=== PATIENT | female | born 1935 | race Caucasian/White ===

== ENCOUNTER 2018-03-08 08:58 | Observation (INO) | payer OTHER, MEDICARE ==
[2018-03-08 09:24] VITALS: TEMP 98.3; BMI 26.6
--- NOTE | 2018-03-08 09:56 | PDOC ---
Attending Attestation - Resident Resident Name: Elizabeth Harry - HPI HPI: 03/08/18 12:46 Pt prsents to the ED complaining of profuse watery diarrhea after taking multiple laxatives yesterday afternoon. Patient has been having a bowel movement approximately every hour. Denies nausea, vomiting, fever or abdominal pain. Has taken immodium at home without relief. - Physicial Exam PE: 03/08/18 12:47 Agree with resident exam. Patient is alert and oriented and in no acute distress. Lungs are clear heart has regular rate and rhythm. Abdomen is non tender, non distended, with no guarding or rebound. 03/08/18 12:52 - Medical Decision Making 03/08/18 12:54 Pt presents to the ED complaining of multiple episodes of profuse watery diarrhea. Denies other complaints. Hyonatremic on labs. Will give IV hydration , admit for observation for hyponatremia.
--- NOTE | 2018-03-08 09:59 | PDOC ---
History of Present Illness - General Chief Complaint: Diarrhea Stated Complaint: DIARRHEA AND ACID REFLUX Time Seen by Provider: 03/08/18 09:51 - History of Present Illness Initial Comments: 03/08/18 11:06 Patient is an 82 year old female with a PMH of MVP, chronic constipation presents to our ED with a 2 day h/o diarrhea. Patient states she took her usual daily dose of Miralax yesterday morning and when she didn't have a bowel movement she took a suppository and administered an enema. Patient has been have multiple (20+) watery non-bloody movements. Denies any associated abdominal cramping, nausea/vomiting. States she is limitedly tolerating PO intake. At baseline patient has constipation and states she usually has a bowel movement after using Miralax daily. Patient denies chest pain, shortness of breath, abdominal pain, recent travel or sick contacts. Allergy: Sulfa Surgical: none reported Social: denies toxic habits PMD: Dr. Vignesh Nielsen Past History - Past Medical History Allergies/Adverse Reactions: Allergies Allergy/AdvReac Type Severity Reaction Status Date / Time Sulfa (Sulfonamide Allergy Intermediate Rash Verified 03/08/18 10:06 Antibiotics) Home Medications: Ambulatory Orders Ascorbate Calcium [Vitamin C] 500 mg PO DAILY 03/08/18 Calcium Carbonate/Vitamin D3 [Calcium 500 + Vit D Caplet] 1 each PO DAILY Lactobacillus Acidophilus [Acidophilus] 1 each PO DAILY 03/08/18 Multivit-Min/FA/Lycopen/Lutein [Centrum Silver Tablet] 1 each PO DAILY 03/08/18 [place]-3S/Dha/Epa/Fish Oil [Fish Oil 1,200 mg Softgel] 1 each PO DAILY 03/08/18 Cardiac Disorders: Yes (mvp) COPD: No Other medical history: neuralgia - Suicide/Smoking/Psychosocial Hx Smoking History: Former smoker Have you smoked in the past 12 months: No If you are a former smoker, when did you quit?: 60 yrs ago Information on smoking cessation initiated: No Hx Alcohol Use: No Drug/Substance Use Hx: No Substance Use Type: None Review of Systems - Review of Systems Constitutional: No: Chills, Fever Respiratory: No: Cough, Shortness of Breath Cardiac (ROS): No: Chest Pain, Lightheadedness, Palpitations, Syncope ABD/GI: Yes: Diarrhea. No: Nausea, Rectal Bleeding, Vomiting, Tarry Stools : No: Burning, Dysuria *Physical Exam - Vital Signs Last Vital Signs Temp Pulse Resp BP Pulse Ox 98.3 F 72 18 134/79 99 03/08/18 09:06 03/08/18 09:06 03/08/18 09:06 03/08/18 09:06 03/08/18 09:06 - Physical Exam General Appearance: Yes: Nourished, Appropriately Dressed HEENT: positive: Normal Voice, Hearing Grossly Normal Neck: positive: Trachea midline, Supple Respiratory/Chest: positive: Lungs Clear, Normal Breath Sounds Cardiovascular: positive: S1, S2, Murmur. negative: Edema, JVD Gastrointestinal/Abdominal: positive: Normal Bowel Sounds, Soft Musculoskeletal: negative: CVA Tenderness (R), CVA Tenderness (L) Extremity: positive: Normal Capillary Refill, Normal Inspection Integumentary: positive: Normal Color, Dry, Warm Neurologic: positive: Fully Oriented, Alert Heart Score/ECG Review - History History: Slightly suspicious - Risk Factors Risk Factors Heart Score: Yes Hx Hypercholesterolemia Based on the list above the patient has:: 1-2 risk factors #1 ECG reviewed & interpreted by me at: 16:00 - ECG Impressions Comment:: 03/08/18 20:08 NSR HR 74, with RBB and L anterior fasicular block, no LESLIE/STD/TWI. RBB not c/ w prior ECG from 2000 ED Treatment Course - LABORATORY CBC & Chemistry Diagram: 03/08/18 11:05 03/08/18 14:55 Medical Decision Making - Medical Decision Making 03/08/18 11:23 82 year old female with a two day h/o diarrhea 2/2 to polypharmacy. VS stable. Will check labs to r/o electrolyte abnormalities, administer IV fluids. Reassess. 03/08/18 11:37 Patient c/o being cold. Temp 98.2 03/08/18 12:09 Na 123 03/08/18 12:10 Patient reassessed @ bedside. ASx - no headache, no fatigue, no nausea/vomiting IV NS hanging 03/08/18 12:20 ECG shows new RBBB, and L anterior fasciular block as documented in ECG section of EMR, not c/w with previous ECG dated 03/08/18 13:20 S/p 1 L IV NS Repeat CMP pending UA/UC to r/o UTI as source of leukocytosis Patient admitted to inpatient hospitalist medicine service. Na 130 - hospitalist service aware. VSS Patient reassessed @ bedside. Resting comfortably. Family @ bedside *DC/Admit/Observation/Transfer Diagnosis at time of Disposition: Good ability to follow directions - Discharge Dispostion Disposition: HOME Condition at time of disposition: Good - Referrals - Patient Instructions - Post Discharge Activity
[2018-03-08] MEDS ORDERED: SODIUM CHLORIDE 0.9% 500 ML INFUS.BAG IV ONE (10:00)
[2018-03-08 11:11] LABS: BASO % 0.3 % (0-2.0); HEMATOCRIT 39.2 % (32.4-45.2); HEMOGLOBIN 13.1 GM/dL (10.7-15.3); LYMPH % 9.4 % (8-40); MCH 28.6 pg (25.7-33.7); MCHC 33.4 g/dl (32.0-36.0); MEAN CELL VOLUME 85.8 fl (80-96); MEAN PLT VOLUME 7.7 fl (7.5-11.1); MONO % 4.7 % (3.8-10.2); NEUT % 85.6 % (42.8-82.8); PLATELET COUNT 240 K/MM3 (134-434); RBC 4.57 M/mm3 (3.60-5.2); RDW 13.6 % (11.6-15.6); WHITE BLOOD COUNT 14.3 K/mm3 (4.0-10.0)
[2018-03-08 11:46] LABS: ALBUMIN 3.4 g/dl (3.4-5.0); ALK PHOS 65 U/L (45-117); ANION GAP 3 MMOL/L (8-16); BILIRUBIN,TOTAL 0.6 mg/dL (0.2-1); BLOOD UREA NITROGEN 13 mg/dL (7-18); CALCIUM 9.1 mg/dL (8.5-10.1); CHLORIDE 92 mmol/L (98-107); CO2 28 mmol/L (21-32); CREATININE 0.6 mg/dL (0.55-1.3); GLUCOSE,RANDOM 126 mg/dL (74-106); POTASSIUM 4.7 mmol/L (3.5-5.1); SGOT/AST 34 U/L (15-37); SGPT/ALT 38 U/L (13-61); SODIUM 123 mmol/L (136-145); TOT PROT 6.8 g/dl (6.4-8.2)
[2018-03-08] MEDS ORDERED: PANTOPRAZOLE SODIUM 40 MG VIAL IVPUSH ONE (12:55)
[2018-03-08] MEDS ORDERED: PANTOPRAZOLE SODIUM 40 MG/100 ML BAG IVPB ONE (12:57)
[2018-03-08 14:16] LABS: URINE APPEARANCE CLEAR; URINE BILIRUBIN NEGATIVE (<2.0 mg/dL); URINE COLOR COLORLESS; URINE GLUCOSE (UA) NEGATIVE (NEGATIVE); URINE KETONE NEGATIVE (NEGATIVE); URINE LEUK ESTERASE NEGATIVE (NEGATIVE); URINE NITRITE NEGATIVE (NEGATIVE); URINE PROTEIN NEGATIVE (NEGATIVE); URINE UROBILINOGEN NEGATIVE mg/dL (0.2-1.0)
--- NOTE | 2018-03-08 14:20 | HP ---
CHIEF COMPLAINT:diarrhea PCP:Dr. Nielsen HISTORY OF PRESENT ILLNESS: Patient is an 82 year old female with past medical history of constipation, presented with multiple episodes of nonbloody diarrhea since yesterday afternoon after taking Miralax, suppository and enema. Patient did not have any bowel movements for the past 2 days, and decided to take all 3 yesterday, one after the other. She then reported subsequent multiple episodes of loose bowel movements, about every 15-30 minutes that lasted all night until this noon. Otherwise, patient denies headache, dizziness, weakness, fevers, chills, chest pain, SOB, abdominal pain, or urinary symptoms. ER course was notable for: (1)IV NS 1L (2)Protonix 40mg IV (3) Recent Travel:denies any recent travel PAST MEDICAL HISTORY: constipation Pudendal neuralgia PAST SURGICAL HISTORY: Hysterectomy Parathyroid surgery (1998) Breast mass excision (L) R eye cataract surgery Social History: Smoking:denies Alcohol:occasional Drugs: denies Family History:non contributory Allergies Sulfa (Sulfonamide Antibiotics) Allergy (Intermediate, Verified 03/08/18 10:06) Rash Minocycline HOME MEDICATIONS: Home Medications Medication Instructions Recorded Ascorbate Calcium [Vitamin C] 500 mg PO DAILY 03/08/18 Calcium Carbonate/Vitamin D3 1 each PO DAILY 03/08/18 [Calcium 500 + Vit D Caplet] Lactobacillus Acidophilus 1 each PO DAILY 03/08/18 [Acidophilus] Multivit-Min/FA/Lycopen/Lutein 1 each PO DAILY 03/08/18 [Centrum Silver Tablet] [place]-3S/Dha/Epa/Fish Oil [Fish 1 each PO DAILY 03/08/18 Oil 1,200 mg Softgel] REVIEW OF SYSTEMS CONSTITUTIONAL: Absent: fever, chills, diaphoresis, generalized weakness, malaise, loss of appetite, weight change HEENT: Absent: rhinorrhea, nasal congestion, throat pain, throat swelling, difficulty swallowing, mouth swelling, ear pain, eye pain, visual changes CARDIOVASCULAR: Absent: chest pain, syncope, palpitations, irregular heart rate, lightheadedness , peripheral edema RESPIRATORY: Absent: cough, shortness of breath, dyspnea with exertion, orthopnea, wheezing, stridor, hemoptysis GASTROINTESTINAL:diarrhea Absent: abdominal pain, abdominal distension, nausea, vomiting, constipation, melena, hematochezia GENITOURINARY: Absent: dysuria, frequency, urgency, hesitancy, hematuria, flank pain, genital pain MUSCULOSKELETAL: Absent: myalgia, arthralgia, joint swelling, back pain, neck pain SKIN: Absent: rash, itching, pallor HEMATOLOGIC/IMMUNOLOGIC: Absent: easy bleeding, easy bruising, lymphadenopathy, frequent infections ENDOCRINE: Absent: unexplained weight gain, unexplained weight loss, heat intolerance, cold intolerance NEUROLOGIC: Absent: headache, focal weakness or paresthesias, dizziness, unsteady gait, seizure, mental status changes, bladder or bowel incontinence PSYCHIATRIC: Absent: anxiety, depression, suicidal or homicidal ideation, hallucinations. PHYSICAL EXAMINATION Vital Signs - 24 hr 03/08/18 03/08/18 03/08/18 09:06 10:30 12:53 Temperature 98.3 F Pulse Rate 72 Pulse Rate [ 73 79 Radial] Respiratory 18 Rate Blood Pressure 134/79 Blood Pressure 142/68 149/65 [Left Arm] O2 Sat by Pulse 99 98 99 Oximetry (%) GENERAL: Awake, alert, and fully oriented, in no acute distress. HEAD: Normal with no signs of trauma. EYES:PERRLA, EOMI, sclera anicteric, conjunctiva clear. No lid lag. EARS, NOSE, THROAT: Ears normal, nares patent, oropharynx clear without exudates. Dry mucous membranes. NECK: Normal range of motion, supple without lymphadenopathy, JVD, or masses. LUNGS: Breath sounds equal, clear to auscultation bilaterally. HEART: Regular rate and rhythm, normal S1 and S2 without murmur, rub or gallop. ABDOMEN: Soft, nontender, not distended, normoactive bowel sounds. MUSCULOSKELETAL: Normal range of motion at all joints. No bony deformities or tenderness. No CVA tenderness. UPPER EXTREMITIES: 2+ pulses, warm, well-perfused. No cyanosis. No clubbing. No peripheral edema. LOWER EXTREMITIES: 2+ pulses, warm, well-perfused. No calf tenderness. No peripheral edema. NEUROLOGICAL: Cranial nerves II-XII intact. Normal speech. Normal gait. PSYCHIATRIC: Cooperative. Good eye contact. Appropriate mood and affect. SKIN: Warm, dry, normal turgor, no rashes or lesions noted, normal capillary refill. Laboratory Results - last 24 hr 03/08/18 03/08/18 03/08/18 11:05 11:05 11:05 WBC 14.3 H RBC 4.57 Hgb 13.1 Hct 39.2 MCV 85.8 MCH 28.6 MCHC 33.4 RDW 13.6 Plt Count 240 MPV 7.7 Absolute Neuts (auto) 12.2 H Neutrophils % 85.6 H Lymphocytes % 9.4 Monocytes % 4.7 Eosinophils % 0.0 Basophils % 0.3 Nucleated RBC % 0 Sodium 123 L Potassium 4.7 Chloride 92 L Carbon Dioxide 28 Anion Gap 3 L BUN 13 Creatinine 0.6 Creat Clearance w eGFR > 60 Random Glucose 126 H Calcium 9.1 Total Bilirubin 0.6 AST 34 ALT 38 Alkaline Phosphatase 65 Creatine Kinase 118 Troponin I < 0.02 Cancelled Total Protein 6.8 Albumin 3.4 Urine Color Urine Appearance Urine pH Ur Specific [place] Urine Protein Urine Glucose (UA) Urine Ketones Urine Blood Urine Nitrite Urine Bilirubin Urine Urobilinogen Ur Leukocyte Esterase 03/08/18 13:55 WBC RBC Hgb Hct MCV MCH MCHC RDW Plt Count MPV Absolute Neuts (auto) Neutrophils % Lymphocytes % Monocytes % Eosinophils % Basophils % Nucleated RBC % Sodium Potassium Chloride Carbon Dioxide Anion Gap BUN Creatinine Creat Clearance w eGFR Random Glucose Calcium Total Bilirubin AST ALT Alkaline Phosphatase Creatine Kinase Troponin I Total Protein Albumin Urine Color Colorless Urine Appearance Clear Urine pH 7.0 Ur Specific [place] 1.002 L Urine Protein Negative Urine Glucose (UA) Negative Urine Ketones Negative Urine Blood 3+ H Urine Nitrite Negative Urine Bilirubin Negative Urine Urobilinogen Negative Ur Leukocyte Esterase Negative ASSESSMENT/PLAN: Patient is an 82 year old female with past medical history of constipation, presented with multiple episodes of nonbloody diarrhea since yesterday afternoon after taking Miralax, suppository and enema. #Hyponatremia: likely 2/2 hypovolemia 2/2 diarrhea -Diarrhea likely caused by multiple stool softeners -- miralax, suppository, enema -Diarrhea now resolved. -Na - 123 -IV NS 1L given at the ED -Will repeat BMP #Leukocytosis: likely reactive -will repeat CBC -CXR normal -Urinalysis normal #EKG:?new onset left anterior fascicular block -will call PCP Dr. Nielsen to get recent EKG for comparison #FEN -Not on any standing fluids -Encourage increased oral fluid intake -hyponatremia, will replete -routine bmp monitoring -regular diet #Prophylaxis -Heparin 5000units sq tid #Disposition -admit to obs
[2018-03-08 15:30] LABS: ALBUMIN 3.2 g/dl (3.4-5.0); ALK PHOS 61 U/L (45-117); ANION GAP 5 MMOL/L (8-16); BILIRUBIN,TOTAL 0.5 mg/dL (0.2-1); BLOOD UREA NITROGEN 12 mg/dL (7-18); CALCIUM 8.7 mg/dL (8.5-10.1); CHLORIDE 97 mmol/L (98-107); CO2 28 mmol/L (21-32); CREATININE 0.7 mg/dL (0.55-1.3); GLUCOSE,RANDOM 119 mg/dL (74-106); POTASSIUM 4.5 mmol/L (3.5-5.1); SGOT/AST 21 U/L (15-37); SGPT/ALT 34 U/L (13-61); SODIUM 130 mmol/L (136-145); TOT PROT 6.4 g/dl (6.4-8.2)
--- NOTE | 2018-03-08 15:30 | PN ---
Teaching Attending Note Name of Resident: Faith Francois ATTENDING PHYSICIAN STATEMENT I saw and evaluated the patient. I reviewed the resident's note and discussed the case with the resident. I agree with the resident's findings and plan as documented with exceptions below. SUBJECTIVE: 82 yof with PMHx of constipation, RBBB, MVP, active otherwise, was constipated on miralax for 2 days, she took dulcolax supp and fleet enema both yesterday and spent all night with multiple episodes of watery non bloody stools and no po intake, so this AM came to ED. Has not had any further diarrhea for last few hours in the ED. Hungry and asking to eat. 12 point ROS done, neg for fevers, chills, abdominal pain, bloody stools, urinary symptoms, exertional chest pain, dizziness, arm or jaw pain or new concerns. Currently asymptomatic sitting in bed, asking to eat. OBJECTIVE: Vital Signs Period Temp Pulse Resp BP Sys/Iglesias Pulse Ox Last 24 Hr 98.3 F 72-79 18-18 134-149/65-79 98-99 Intake & Output 03/05/18 03/06/18 03/07/18 03/08/18 23:59 23:59 23:59 23:59 Weight 132 lb GENERAL: Awake, alert, and fully oriented, in no acute distress. HEAD: Normal with no signs of trauma. EYES: Pupils equal, round and reactive to light, extraocular movements intact, sclera anicteric, conjunctiva clear. No lid lag. EARS, NOSE, THROAT: Ears normal, nares patent, oropharynx clear without exudates. Moist mucous membranes. NECK: Normal range of motion, supple without lymphadenopathy, JVD, or masses. LUNGS: Breath sounds equal, clear to auscultation bilaterally. No wheezes, and no crackles. No accessory muscle use. HEART: S1S2 regular, rate rhythm. ABDOMEN: Soft, nontender, not distended, normoactive bowel sounds, no guarding, no rebound, no masses. No hepatomegaly or splenomegaly appreciated. MUSCULOSKELETAL: Normal range of motion at all joints. No bony deformities or tenderness. No CVA tenderness. UPPER EXTREMITIES: 2+ pulses, warm, well-perfused. No cyanosis. No clubbing. No peripheral edema. LOWER EXTREMITIES: 2+ pulses, warm, well-perfused. No calf tenderness. No peripheral edema. NEUROLOGICAL: Cranial nerves II-XII intact. Normal speech. Gait deferred, Facial symmetry, tongue midline PSYCHIATRIC: Cooperative. Good eye contact. Appropriate mood and affect. SKIN: Warm, dry, normal turgor, no rashes or lesions noted, normal capillary refill. Laboratory Results - last 24 hr 03/08/18 03/08/18 03/08/18 11:05 11:05 11:05 WBC 14.3 H RBC 4.57 Hgb 13.1 Hct 39.2 MCV 85.8 MCH 28.6 MCHC 33.4 RDW 13.6 Plt Count 240 MPV 7.7 Absolute Neuts (auto) 12.2 H Neutrophils % 85.6 H Lymphocytes % 9.4 Monocytes % 4.7 Eosinophils % 0.0 Basophils % 0.3 Nucleated RBC % 0 Sodium 123 L Potassium 4.7 Chloride 92 L Carbon Dioxide 28 Anion Gap 3 L BUN 13 Creatinine 0.6 Creat Clearance w eGFR > 60 Random Glucose 126 H Calcium 9.1 Total Bilirubin 0.6 AST 34 ALT 38 Alkaline Phosphatase 65 Creatine Kinase 118 Troponin I < 0.02 Cancelled Total Protein 6.8 Albumin 3.4 Urine Color Urine Appearance Urine pH Ur Specific [place] Urine Protein Urine Glucose (UA) Urine Ketones Urine Blood Urine Nitrite Urine Bilirubin Urine Urobilinogen Ur Leukocyte Esterase Urine WBC (Auto) Urine RBC (Auto) 03/08/18 13:55 WBC RBC Hgb Hct MCV MCH MCHC RDW Plt Count MPV Absolute Neuts (auto) Neutrophils % Lymphocytes % Monocytes % Eosinophils % Basophils % Nucleated RBC % Sodium Potassium Chloride Carbon Dioxide Anion Gap BUN Creatinine Creat Clearance w eGFR Random Glucose Calcium Total Bilirubin AST ALT Alkaline Phosphatase Creatine Kinase Troponin I Total Protein Albumin Urine Color Colorless Urine Appearance Clear Urine pH 7.0 Ur Specific [place] 1.002 L Urine Protein Negative Urine Glucose (UA) Negative Urine Ketones Negative Urine Blood 3+ H Urine Nitrite Negative Urine Bilirubin Negative Urine Urobilinogen Negative Ur Leukocyte Esterase Negative Urine WBC (Auto) 1 Urine RBC (Auto) <1 EKG RBBB, LAFB ASSESSMENT AND PLAN: 82 yof with constipation here with diarrhea in the setting of aggressive laxative use, hyponatremia, and RBBB/LAFB on EKG. -Diarrhea in the setting of aggressive laxative use -Hypovolumic hyponatremia -Leucocytosis, suspect stress induced from above, no s/s concerning for infection -RBBB/LAFB Plan: diarrhea resolved. s/p NS in ED. REsume po as tolerated, regular salt diet. Repeat Na levels, suspect will be better as diarrhea resolved and s/p IVF. Anticipate would self-correct as PO intake improved and no further diarrhea. Hold off on further hydration. patient counseled on trial with 1 laxative at a time and wait for 24-48 hours to assess response. Known h/o RBBB. Unclear if LAFB present. Patient reports 2D echo few months ago. No concerning symptoms on presentation. Will retrieve old EKG from PCP (None available since 2000 here) Dispo d/c later today or tomorrow if hyponatremia improved, and no new concerns. Plan discussed with patient in detail, all questions answered. Admit to obs tele. total admit time 55 min.
--- NOTE | 2018-03-08 16:08 | DS ---
Physical Exam: SUBJECTIVE: Patient seen and examined OBJECTIVE: Vital Signs Period Temp Pulse Resp BP Sys/Iglesias Pulse Ox Last 24 Hr 98.3 F 72-79 18-18 134-149/65-79 98-99 PHYSICAL EXAM GENERAL: The patient is awake, alert, and fully oriented, in no acute distress. HEAD: Normal with no signs of trauma. EYES: PERRL, extraocular movements intact, sclera anicteric, conjunctiva clear. ENT: Ears normal, nares patent, oropharynx clear without exudates, moist mucous membranes. NECK: Trachea midline, full range of motion, supple. LUNGS: Breath sounds equal, clear to auscultation bilaterally, no wheezes, no crackles, no accessory muscle use. HEART: Regular rate and rhythm, S1, S2 without murmur, rub or gallop. ABDOMEN: Soft, nontender, nondistended, normoactive bowel sounds, no guarding, no rebound, no hepatosplenomegaly, no masses. EXTREMITIES: 2+ pulses, warm, well-perfused, no edema. NEUROLOGICAL: Cranial nerves II through XII grossly intact. Normal speech, gait not observed. PSYCH: Normal mood, normal affect. SKIN: Warm, dry, normal turgor, no rashes or lesions noted. LABS Laboratory Results - last 24 hr 03/08/18 03/08/18 03/08/18 11:05 11:05 11:05 WBC 14.3 H RBC 4.57 Hgb 13.1 Hct 39.2 MCV 85.8 MCH 28.6 MCHC 33.4 RDW 13.6 Plt Count 240 MPV 7.7 Absolute Neuts (auto) 12.2 H Neutrophils % 85.6 H Lymphocytes % 9.4 Monocytes % 4.7 Eosinophils % 0.0 Basophils % 0.3 Nucleated RBC % 0 Sodium 123 L Potassium 4.7 Chloride 92 L Carbon Dioxide 28 Anion Gap 3 L BUN 13 Creatinine 0.6 Creat Clearance w eGFR > 60 Random Glucose 126 H Calcium 9.1 Total Bilirubin 0.6 AST 34 ALT 38 Alkaline Phosphatase 65 Creatine Kinase 118 Troponin I < 0.02 Cancelled Total Protein 6.8 Albumin 3.4 Urine Color Urine Appearance Urine pH Ur Specific [place] Urine Protein Urine Glucose (UA) Urine Ketones Urine Blood Urine Nitrite Urine Bilirubin Urine Urobilinogen Ur Leukocyte Esterase Urine WBC (Auto) Urine RBC (Auto) 03/08/18 03/08/18 13:55 14:55 WBC RBC Hgb Hct MCV MCH MCHC RDW Plt Count MPV Absolute Neuts (auto) Neutrophils % Lymphocytes % Monocytes % Eosinophils % Basophils % Nucleated RBC % Sodium 130 L Potassium 4.5 Chloride 97 L Carbon Dioxide 28 Anion Gap 5 L BUN 12 Creatinine 0.7 Creat Clearance w eGFR > 60 Random Glucose 119 H Calcium 8.7 Total Bilirubin 0.5 AST 21 ALT 34 Alkaline Phosphatase 61 Creatine Kinase Troponin I Total Protein 6.4 Albumin 3.2 L Urine Color Colorless Urine Appearance Clear Urine pH 7.0 Ur Specific [place] 1.002 L Urine Protein Negative Urine Glucose (UA) Negative Urine Ketones Negative Urine Blood 3+ H Urine Nitrite Negative Urine Bilirubin Negative Urine Urobilinogen Negative Ur Leukocyte Esterase Negative Urine WBC (Auto) 1 Urine RBC (Auto) <1 HOSPITAL COURSE: Date of Admission:03/08/18 Date of Discharge: 03/08/18 Discharge Summary Reason For Visit: HYPONATREMIA Condition: Good - Instructions Diet, Activity, Other Instructions: You were seen because you had multiple episodes of diarrhea from taking 3 different stool softeners. You were noted to have low sodium that is probably caused by the diarrhea. You were given IV fluids, and followed your sodium levels. Have a regular salt diet, drink fluids that contains salt and electrolytes over next 1-2 days. Do not take stool softeners for the next 2 days. Please avoid taking multiple stool softeners at a time. If your constipated, you may take one, and then a second one after 12-24 hours. Wait for 48 hours of no bowel movement before taking a 3rd stool softener. Have a high fiber diet, including fresh fruits and green leafy vegetables, as well as whole grain breads and cereals. Maintain adequate hydration. You were also noted to have abnormal EKG findings. We were able to compare with your old EKGs from your primary care doctor done last month, and it is unchanged. 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 Continue your home medications as prescribed, but holding off on your laxatives for next 2 days.. Follow-up with your primary care doctor in 1 week for a repeat blood work: -CBC -BMP Call 911 or go to the ED if with any worsening diarrhea, headache, fever, chills , weakness, chest pain, shortness of breath, or any new concerns noted. Referrals: Demetri Nielsen MD [Primary Care Provider] - Disposition: HOME - Home Medications Comprehensive Discharge Medication List: Ambulatory Orders Ascorbate Calcium [Vitamin C] 500 mg PO DAILY 03/08/18 Calcium Carbonate/Vitamin D3 [Calcium 500 + Vit D Caplet] 1 each PO DAILY Lactobacillus Acidophilus [Acidophilus] 1 each PO DAILY 03/08/18 Multivit-Min/FA/Lycopen/Lutein [Centrum Silver Tablet] 1 each PO DAILY 03/08/18 [place]-3S/Dha/Epa/Fish Oil [Fish Oil 1,200 mg Softgel] 1 each PO DAILY 03/08/18
[2018-03-08 17:21] VITALS: BP 136/81; PULSE 71
[2018-03-08] MEDS ORDERED: HEPARIN NA (PORCINE) 5,000 UNITS/ML 1ML VIAL SQ SCH (22:00)
--- NOTE | 2018-03-09 13:03 | EKG ---
Test Reason : Blood Pressure : / mmHG Vent. Rate : 074 BPM Atrial Rate : 074 BPM P-R Int : 166 ms QRS Dur : 152 ms QT Int : 436 ms P-R-T Axes : 060 -54 024 degrees QTc Int : 483 ms NORMAL SINUS RHYTHM RIGHT BUNDLE BRANCH BLOCK LEFT ANTERIOR FASCICULAR BLOCK BIFASCICULAR BLOCK CANNOT RULE OUT INFERIOR INFARCT (MASKED BY FASCICULAR BLOCK?) , AGE UNDETERMINED ABNORMAL ECG WHEN COMPARED WITH ECG OF 04-FEB-2001 15:28, (RBBB AND LEFT ANTERIOR FASCICULAR BLOCK) IS NOW PRESENT MINIMAL CRITERIA FOR INFERIOR INFARCT ARE NOW PRESENT Confirmed by MD MER, WENDI ([id number]) on 03/09/2018 1:03:10 PM Referred By: Confirmed By:WENDI DEL ANGEL MD
== END 2018-03-08 17:22 | disposition home or self-care (01) ==
LOC: JER 08:58 → JERBED 13:45
PROVIDERS: ADMIT Hospitalist; ATTEND Hospitalist
PROC: 3E033GC Introduction of Other Therapeutic Substance into Peripheral Vein, Percutaneous Approach (ICD-10-PCS; principal; 2018-03-08)
PROC: 3E0337Z Introduction of Electrolytic and Water Balance Substance into Peripheral Vein, Percutaneous Approach (ICD-10-PCS; 2018-03-08)
DX: E87.1 Hypo-osmolality and hyponatremia (principal); R19.7 Diarrhea, unspecified; E86.1 Hypovolemia; D72.829 Elevated white blood cell count, unspecified; I34.1 Nonrheumatic mitral (valve) prolapse; Z87.891 Personal history of nicotine dependence
CPT/HCPCS: 36415; 80053; 81003; 81015; 82550; 84484; 85025; 87086; 93005; 93010; 96374; 99283-25; G0378